=== PATIENT | male | born 1975 | race African-American/Black ===

== ENCOUNTER 2019-01-09 12:25 | Observation (INO) ==
[2019-01-09] MEDS ORDERED: 0.9 % Sodium Chloride 1,000 ML IVC SCH (16:00)
[2019-01-10] MEDS ORDERED: *HR* Midazolam HCl 2 MG/2 ML VIAL ONE (08:41)
[2019-01-10] MEDS ORDERED: *HR* FentaNYL (PF) 100 MCG/2 ML VIAL ONE (08:41)
[2019-01-10] MEDS ORDERED: *HR* Propofol 200 MG/20 ML VIAL IVP ONE ×2 (08:41→10:11)
[2019-01-10] MEDS ORDERED: *HR* Succinylcholine 200 MG/10 ML VIAL IVP ONE (08:43)
[2019-01-10] MEDS ORDERED: Lidocaine -MPF 2% 2 ML VIAL ONE (08:43)
[2019-01-10] MEDS ORDERED: Ondansetron ODT 4 MG TAB.RAPDIS SL PRN (11:30)
[2019-01-10] MEDS ORDERED: 0.9 % Sodium Chloride 1,000 ML IVC SCH (11:30)
[2019-01-10] MEDS ORDERED: *HR* OxyCODONE Immed Rel 5 MG TABLET PO PRN (11:30)
[2019-01-10] MEDS ORDERED: *HR* Heparin 5,000 UNIT/ML VIAL SQ SCH (14:00)
[2019-01-10 16:52] VITALS: BP 133/77
== END 2019-01-10 18:00 | disposition home or self-care (01) ==
LOC: SAMDAY 12:25 → 3ANU 12:25
PROVIDERS: ADMIT Surgery; ATTEND Surgery

== ENCOUNTER 2020-09-22 16:01 | Inpatient (IN) ==
[2020-09-22] MEDS ORDERED: Acetaminophen 325 MG TABLET PO ONE (16:33)
[2020-09-22 16:44] LABS: Basophils % 0.2 %; Monocytes % 3.5 %; Segmented Neutrophils % 93.2 %
[2020-09-22 16:46] LABS: Hematocrit 36.6 % (37.5-50.1); Hemoglobin 12.1 g/dL (12.9-16.9); Immature Granulocytes % 1.1 % (0-4); Immature Platelets 8.6 % (1.1-6.1); Lymphocytes # 0.3 K/mcL (0.6-4.6); Mean Corpuscular HGB Conc 33.1 g/dL (31.6-35.5); Mean Corpuscular Hemoglobin 31.1 pg (28.0-33.3); Mean Corpuscular Volume 94.1 fL (83.0-100.0); Mean Platelet Volume 11.5 fL (9.4-12.4); Monocytes # 0.6 K/mcL (0.0-1.3); Neutrophils # 14.7 K/mcL (1.6-8.9); Platelet Count 134 K/mcL (140-400); Red Blood Count 3.89 M/mcL (4.19-5.50); Red Cell Distribution Width 14.5 % (11.5-14.5); White Blood Count 15.8 K/mcL (4.3-11.1)
[2020-09-22] MEDS ORDERED: 0.9 % Sodium Chloride 250 ML IVC ONE ×5 (16:46→19:36)
[2020-09-22] MEDS ORDERED: Piperacillin/Tazobactam 3.375 GM in Water for inj. (sterile) 20 ML IVP ONE (16:50)
[2020-09-22] MEDS ORDERED: Vancomycin 1,500 MG/265 ML IV.SOLN IVPB ONE (17:00)
[2020-09-22 17:08] LABS: Calcium 10.2 mg/dL (8.6-10.3); Potassium 5.8 mEq/L (3.5-5.1)
[2020-09-22] MEDS ORDERED: 0.9 % Sodium Chloride 250 ML ONE (18:42)
[2020-09-22] MEDS ORDERED: Ondansetron 4 MG/2 ML VIAL IVP PRN (19:56)
[2020-09-22] MEDS ORDERED: Naloxone 0.4 MG/ML INJ IVP PRN (19:56)
[2020-09-22] MEDS ORDERED: Acetaminophen 325 MG TABLET PO PRN (19:56)
[2020-09-22] MEDS ORDERED: Lidocaine -MPF 2% 5 ML VIAL ONE (21:23)
[2020-09-22 22:00] LABS: VBG Ionized Calcium 1.07 mmol/L (1.15-1.35)
[2020-09-22 22:23] LABS: Calcium 9.8 mg/dL (8.6-10.3); Magnesium 1.7 mg/dL (1.6-2.6); Potassium 5.4 mEq/L (3.5-5.1)
[2020-09-22] MEDS ORDERED: Calcium Gluconate 1gm/50mL 1 GM/50 ML BAG IVPB PRN (23:09)
[2020-09-22] MEDS ORDERED: Vancomycin 1 EACH in 0.9 % Sodium Chloride 250 ML IVPB PRN (23:45)
[2020-09-23] MEDS ORDERED: Phenylephrine 10 MG in 0.9 % Sodium Chloride 250 ML IVC SCH (01:30)
[2020-09-23] MEDS: Phenylephrine 50 MG in 0.9 % Sodium Chloride 250 ML IVC SCH ×3 (03:57→14:46)
[2020-09-23] MEDS ORDERED: Piperacillin/Tazobactam 3.375 GM in 0.9 % Sodium Chloride Mini Bag 100 ML IVPB SCH (06:00)
[2020-09-23 06:02] LABS: Basophils % 0.3 %; Hematocrit 36.1 % (37.5-50.1); Hemoglobin 11.8 g/dL (12.9-16.9); Immature Granulocytes % 0.5 % (0-4); Lymphocytes # 0.4 K/mcL (0.6-4.6); Lymphocytes % 4.5 %; Mean Corpuscular HGB Conc 32.7 g/dL (31.6-35.5); Mean Corpuscular Hemoglobin 30.9 pg (28.0-33.3); Mean Corpuscular Volume 94.5 fL (83.0-100.0); Mean Platelet Volume 10.9 fL (9.4-12.4); Monocytes # 0.4 K/mcL (0.0-1.3); Monocytes % 4.4 %; Platelet Count 132 K/mcL (140-400); Red Blood Count 3.82 M/mcL (4.19-5.50); Red Cell Distribution Width 14.6 % (11.5-14.5); Segmented Neutrophils % 90.3 %; White Blood Count 8.8 K/mcL (4.3-11.1)
[2020-09-23 06:08] LABS: INR 1.4; Prothrombin Time 16.4 Seconds (9.4-12.1)
[2020-09-23 06:22] LABS: VBG Ionized Calcium 1.11 mmol/L (1.15-1.35)
[2020-09-23 06:24] LABS: Albumin 4.2 g/dL (3.5-5.7); Albumin/Globulin Ratio 1.1 (1.1-2.2); Calcium 10.2 mg/dL (8.6-10.3); Globulin 3.9 g/dL (2.4-3.5); Magnesium 1.9 mg/dL (1.6-2.6); Potassium 4.6 mEq/L (3.5-5.1); Total Protein 8.1 g/dL (6.4-8.9)
[2020-09-23] MEDS ORDERED: Perflutren Lipid Microsphere 1.3 ML in 0.9 % Sodium Chloride 8.7 ML IVP PRN (07:21)
[2020-09-23 09:14] LABS: Acinetobacter baumannii by PCR Not Detected (Not Detect); Enterococcus by PCR Not Detected (Not Detect); Staphylococcus aureus by PCR Not Detected (Not Detect); Staphylococcus by PCR Not Detected (Not Detect); Streptococcus agalactiae(B)PCR Not Detected (Not Detect); Streptococcus by PCR Not Detected (Not Detect); Streptococcus pneumoniae PCR Not Detected (Not Detect); Streptococcus pyogenes (A) PCR Not Detected (Not Detect)
[2020-09-23 09:15] LABS: Candida albicans by PCR Not Detected (Not Detect); Candida glabrata by PCR Not Detected (Not Detect); Candida krusei by PCR Not Detected (Not Detect); Candida parapsilosis by PCR Not Detected (Not Detect); Candida tropicalis by PCR Not Detected (Not Detect); Enterobacter cloacae Cmplx PCR Not Detected (Not Detect); Escherichia coli by PCR Not Detected (Not Detect); Klebsiella oxytoca by PCR Not Detected (Not Detect); Klebsiella pneumoniae by PCR Not Detected (Not Detect); Proteus by PCR Not Detected (Not Detect); Pseudomonas aeruginosa by PCR Not Detected (Not Detect); Serratia marcescens by PCR DETECTED (Not Detect)
[2020-09-23] MEDS ORDERED: Heparin 1,000 UNITS/500 mL 500 ML ONE (12:31)
[2020-09-23] MEDS ORDERED: *HR* Heparin 10,000 UNIT/10 ML VIAL IV PRN (12:34)
[2020-09-23] MEDS ORDERED: 0.9 % Sodium Chloride 250 ML IVC PRN (12:34)
[2020-09-23] MEDS ORDERED: 0.9 % Sodium Chloride 1,000 ML PRIME SCH (12:45)
[2020-09-23 16:31] VITALS: BP 100/66
[2020-09-23 17:46] LABS: Adenovirus F 40/41 PCR Not detected (Not detect); Astrovirus PCR Not detected (Not detect); C.difficile Toxin A/B Gene PCR Not detected (Not detect); Campylobacter by PCR Not detected (Not detect); Cryptosporidium by PCR Not detected (Not detect); Cyclospora cayetanensis PCR Not detected (Not detect); E. coli O157 by PCR Not detected (Not detect); Entamoeba histolytica PCR Not detected (Not detect); Enteroaggregative E.coli(EAEC) Not detected (Not detect); Enteropathogenic E.coli(EPEC) Not detected (Not detect); Enterotoxigenic E.coli (ETEC) Not detected (Not detect); Giardia lamblia PCR Not detected (Not detect); Norovirus GI/GII PCR Not detected (Not detect); Plesiomonas shigelloides PCR Not detected (Not detect); Rotavirus A PCR Not detected (Not detect); Salmonella PCR Not detected (Not detect); Sapovirus PCR Not detected (Not detect); Shig/EnteroinvasiveE coli EIEC Not detected (Not detect); Shigalike tox-prod E coli STEC Not detected (Not detect); Vibrio PCR Not detected (Not detect); Vibrio cholerae PCR Not detected (Not detect); Yersinia enterocolitica PCR Not detected (Not detect)
== END 2020-09-23 16:24 | disposition short-term general hospital (02) | DRG 314 ==
LOC: ICNU 16:01 → EMEROOARM 16:01 → ICNU 20:45
PROVIDERS: ADMIT Internal Medicine; ATTEND Internal Medicine

== ENCOUNTER 2021-04-19 08:58 | Observation (INO) ==
[2021-04-19 10:39] LABS: Basophils % 0.4 %; Eosinophils % 0.1 %; Hematocrit 33.1 % (37.5-50.1); Hemoglobin 10.9 g/dL (12.9-16.9); Immature Granulocytes % 0.4 % (0-4); Lymphocytes # 0.5 K/mcL (0.6-4.6); Lymphocytes % 4.2 %; Mean Corpuscular HGB Conc 32.9 g/dL (31.6-35.5); Mean Corpuscular Hemoglobin 29.7 pg (28.0-33.3); Mean Corpuscular Volume 90.2 fL (83.0-100.0); Mean Platelet Volume 10.4 fL (9.4-12.4); Monocytes # 0.6 K/mcL (0.0-1.3); Monocytes % 5.6 %; Neutrophils # 9.9 K/mcL (1.6-8.9); Platelet Count 226 K/mcL (140-400); Red Blood Count 3.67 M/mcL (4.19-5.50); Red Cell Distribution Width 15.1 % (11.5-14.5); Segmented Neutrophils % 89.3 %; White Blood Count 11.1 K/mcL (4.3-11.1)
[2021-04-19] MEDS ORDERED: Isovue-370 500 ML BOTTLE IVP ONE (11:12)
[2021-04-19 11:21] LABS: Albumin/Globulin Ratio 1.8 (1.1-2.2); Bilirubin,Direct 0.1 mg/dL (0.0-0.2); Bilirubin,Indirect 0.2 mg/dL (0.0-1.0); Bilirubin,Total 0.3 mg/dL (0.3-1.0); Calcium 9.6 mg/dL (8.6-10.3); Globulin 2.8 g/dL (2.4-3.5); Phosphorous 4.2 mg/dL (2.7-4.5); Potassium 3.9 mEq/L (3.5-5.1); Thyroid Stimulating Hormone 2.721 mcIU/mL (0.340-5.600); Total Protein 7.8 g/dL (6.4-8.9); Troponin I 0.04 ng/mL (< 0.04)
[2021-04-19 11:25] LABS: Influenza A PCR Negative (Negative); Influenza B PCR Negative (Negative); Resp. Syncytial Virus PCR Negative (Negative)
[2021-04-19 11:39] LABS: SARS-CoV-2 by PCR (In House) Negative (Negative)
[2021-04-19] MEDS ORDERED: Ondansetron 4 MG/2 ML VIAL IVP PRN (15:07)
[2021-04-19] MEDS ORDERED: Naloxone 0.4 MG/ML INJ IVP PRN (15:07)
[2021-04-19] MEDS ORDERED: *HR* Metoprolol 5 MG/5 ML VIAL IVP PRN (15:20)
[2021-04-19] MEDS ORDERED: cloNIDine HCL 0.1 MG TABLET PO PRN (15:26)
[2021-04-19] MEDS ORDERED: Sulfamethoxazole/Trimeth DS 1 EACH TABLET PO SCH (15:30)
[2021-04-19] MEDS: Calcium Acetate 667 MG CAPSULE PO SCH (17:39)
[2021-04-19] MEDS: cloNIDine HCL 0.1 MG TABLET PO SCH ×2 (18:18→22:24)
[2021-04-19 18:30] LABS: Hepatitis B Surface Antibody > 850.00 mIU/mL
[2021-04-19 18:41] LABS: Hepatitis B Surface Antigen Nonreactive (Nonreactive)
[2021-04-19 19:26] VITALS: O2SAT 99
[2021-04-19] MEDS: Mycophenolate Sodium (DR) 180 MG TABLET.DR PO SCH (22:24)
[2021-04-20 01:59] LABS: Basophils % 0.4 %; Eosinophils # 0.1 K/mcL (0.0-0.6); Eosinophils % 0.9 %; Hematocrit 29.4 % (37.5-50.1); Hemoglobin 9.7 g/dL (12.9-16.9); Immature Granulocytes % 0.5 % (0-4); Lymphocytes # 0.9 K/mcL (0.6-4.6); Lymphocytes % 11.1 %; Mean Corpuscular Hemoglobin 29.7 pg (28.0-33.3); Mean Corpuscular Volume 89.9 fL (83.0-100.0); Mean Platelet Volume 10.5 fL (9.4-12.4); Monocytes # 0.6 K/mcL (0.0-1.3); Neutrophils # 6.3 K/mcL (1.6-8.9); Platelet Count 208 K/mcL (140-400); Red Blood Count 3.27 M/mcL (4.19-5.50); Red Cell Distribution Width 15.6 % (11.5-14.5); Segmented Neutrophils % 79.1 %
[2021-04-20 02:23] LABS: Calcium 9.1 mg/dL (8.6-10.3); Potassium 4.5 mEq/L (3.5-5.1)
[2021-04-20] MEDS: Mycophenolate Sodium (DR) 180 MG TABLET.DR PO SCH (07:40)
[2021-04-20] MEDS: cloNIDine HCL 0.1 MG TABLET PO SCH ×2 (07:40→15:59)
[2021-04-20] MEDS: Calcium Acetate 667 MG CAPSULE PO SCH ×3 (07:41→15:59)
[2021-04-20] MEDS ORDERED: Renal Vitamin 1 CAP CAPSULE PO SCH (09:00)
[2021-04-20] MEDS ORDERED: Omega-3/Dha/Epa/Fish Oil [Fish Oil 1,000 Mg Softgel] PO SCH (09:00)
[2021-04-20] MEDS ORDERED: predniSONE 5 MG TABLET PO SCH (09:00)
[2021-04-20] MEDS ORDERED: amLODIPine 5 MG TABLET PO SCH (09:00)
[2021-04-20] MEDS ORDERED: Cholecalciferol (D-3) 1,000 UNIT (25MCG) TABLET PO SCH (09:00)
[2021-04-20] MEDS ORDERED: SODIUM ZIRCONIUM CYCLOSILICATE 5 GM POWD.PACK PO SCH (09:00)
[2021-04-20] MEDS ORDERED: Aspirin Enteric Coated 81 MG Tablet PO SCH (09:00)
[2021-04-20] MEDS ORDERED: *HR* Heparin 10,000 UNIT/10 ML VIAL IV PRN ×2 (09:24)
[2021-04-20] MEDS ORDERED: 0.9 % Sodium Chloride 250 ML IVC PRN (09:24)
[2021-04-20] MEDS ORDERED: 0.9 % Sodium Chloride 1,000 ML PRIME SCH (09:30)
[2021-04-20 16:08] VITALS: BP 138/83; PULSE 98; TEMP 98.2
[2021-04-21] MEDS ORDERED: Sulfamethoxazole/Trimeth DS 1 EACH TABLET PO SCH (16:00)
== END 2021-04-20 17:45 | disposition home or self-care (01) ==
LOC: EMEROOARM 08:58 → 2ANU 08:58
PROVIDERS: ADMIT Student in an Organized Health Care Education/Training Program; ATTEND Student in an Organized Health Care Education/Training Program